=== PATIENT | female | born 1970 | race Caucasian/White ===

== ENCOUNTER 2021-12-23 11:19 | Inpatient (IN) ==
[2021-12-23] MEDS ORDERED: Lorazepam PYXIS KEY PRN (11:41)
[2021-12-23] MEDS ORDERED: LORazepam 2 mg VIAL 1 ml IM ONE (11:41)
[2021-12-23] MEDS ORDERED: Haloperidol 5 mg/ml SDV IV/IM 5 MG/ML AMP IM ONE (11:41)
[2021-12-23] MEDS ORDERED: NS 0.9% 1000 ml BAG 1,000 ML IV ONE (11:42)
[2021-12-23] MEDS ORDERED: Haloperidol 5 mg/ml SDV IV/IM 5 MG/ML AMP ONE (11:42)
[2021-12-23] MEDS ORDERED: LORazepam 2 mg VIAL 1 ml ONE (11:42)
[2021-12-23 12:38] LABS: Urine Appearance Cloudy; Urine Bilirubin Negative (Negative); Urine Blood Negative (Negative); Urine Color Yellow; Urine Glucose Negative (Negative); Urine Ketones Negative (Negative); Urine Nitrite Negative (Negative); Urine Protein Negative (Negative); Urine Urobilinogen Negative (Negative)
[2021-12-23 12:44] LABS: Urine Bacteria 1+ (Absent); Urine Red Blood Cell Absent (Absent); Urine Squamous Epithelial Cell Present (Absent); Urine White Blood Cell 2+(11-20/hpf) (Absent)
[2021-12-23 13:05] LABS: Urine Benzodiazepine Screen None Detected (None Detect); Urine Cannabinoids Screen None Detected (None Detect); Urine Opiates Screen None Detected (None Detect)
[2021-12-23 13:26] LABS: ABS Lymphocytes 2.1 10^3/ul (1.0-4.8); ABS Monocytes 0.6 10^3/ul (0-0.8); ABS Neutrophils 6.5 10^3/ul (1.5-7.7); Eosinophil % 0.3 %; Hematocrit 41 % (35-47); Hemoglobin 13.4 g/dL (12.0-16.0); Lymphocyte % 23.2 %; Mean Corpuscular HGB Conc 33 g/dL (31-36); Mean Corpuscular Hemoglobin 30 pg (27-31); Mean Corpuscular Volume 92 fL (80-97); Mean Platelet Volume 8.8 fL (7.4-10.4); Platelet Count 209 10^3/uL (150-450); Red Blood Count 4.52 10^6 /uL (3.70-4.87); Red Cell Distribution Width 13 % (10-15); White Blood Count 9.2 10^3/uL (3.5-10.8)
[2021-12-23 14:15] LABS: ALT 52 U/L (7-52); AST 39 U/L (13-39); Albumin 4.7 g/dL (3.2-5.2); Albumin/Globulin Ratio 2.4 (1-3); Alcohol, S < 13 mg/dL (<13); Alkaline Phosphatase 73 U/L (35-149); Anion Gap 12 mmol/L (2-11); Blood Urea Nitrogen 9 mg/dL (6-24); CO2 Carbon Dioxide 26 mmol/L (22-32); Chloride 103 mmol/L (101-111); Glucose 160 mg/dL (70-100); Potassium 3.5 mmol/L (3.5-5.0); Sodium 141 mmol/L (135-145); Total Protein 6.7 g/dL (6.4-8.9); eGFR CKD-EPI 62.1 (>60)
[2021-12-23 14:28] LABS: TSH Ultra Thyroid Stim Horm 0.81 mcIU/mL (0.34-5.60)
[2021-12-23] MEDS ORDERED: Al Hydrox/Mg Hydrox/Simet LIQ 30 ML UDC PO PRN (16:02)
[2021-12-24] MEDS ORDERED: LORazepam 2 mg VIAL 1 ml ONE (07:36)
[2021-12-24] MEDS ORDERED: Lorazepam PYXIS KEY ONE (07:36)
[2021-12-24] MEDS: OLANZapine 5 mg TAB *ODT PO SCH ×2 (22:07→23:04)
[2021-12-25] MEDS: OLANZapine 5 mg TAB *ODT PO SCH (21:30)
[2021-12-26] MEDS: OLANZapine 10 mg TAB*ODT PO SCH (21:21)
[2021-12-27] MEDS: OLANZapine 10 mg TAB*ODT PO SCH (20:56)
[2021-12-28] MEDS: OLANZapine 5 mg TAB *ODT PO SCH (21:09)
[2021-12-29] MEDS: OLANZapine 5 mg TAB *ODT PO SCH (20:43)
[2021-12-30] MEDS: OLANZapine 5 mg TAB *ODT PO SCH (21:01)
[2021-12-31] MEDS: OLANZapine 5 mg TAB *ODT PO SCH (20:56)
[2022-01-01] MEDS: OLANZapine 5 mg TAB *ODT PO SCH (20:43)
[2022-01-02] MEDS: OLANZapine 5 mg TAB *ODT PO SCH (20:07)
[2022-01-02 20:55] VITALS: BP 136/79
== END 2022-01-03 13:56 | disposition home or self-care (01) | DRG 753 ==
LOC: ED 11:19 → EDHOLD 16:02 → BSU 17:04
PROVIDERS: ADMIT Psychiatry & Neurology Psychiatry; ATTEND Psychiatry & Neurology Psychiatry